=== PATIENT | female | born 1950 | race American Indian/Alaskan Native ===

== ENCOUNTER 2020-06-23 01:25 | Emergency (ER) | payer MEDICARE ==
--- NOTE | 2020-06-23 03:19 | XRay Report ---
CHEST 1 VIEW 06/23/2020 3:07 AM INDICATION / CLINICAL INFORMATION: Chest Pain. COMPARISON: None available. FINDINGS: SUPPORT DEVICES: None. HEART / MEDIASTINUM: No significant abnormality. LUNGS / PLEURA: No significant pulmonary or pleural abnormality. No pneumothorax. ADDITIONAL FINDINGS: No significant additional findings. IMPRESSION: 1. No acute findings. Signer Name: Gabriel Garcia MD Signed: 06/23/2020 3:15 AM Workstation Name: [id number]
--- NOTE | 2020-06-23 03:57 | Cat Scan Report ---
CT head/brain wo con INDICATION: Syncope, fall, loss of consciousness, headache. TECHNIQUE: Routine CT head without contrast. All CT scans at this location are performed using CT dose reduction for ALARA by means of automated exposure control. COMPARISON: None. FINDINGS: BRAIN / INTRACRANIAL CONTENTS: No acute hemorrhage, brain edema, mass effect, or hydrocephalus. Yara l lu-white differentiation. No chronic infarct. Age-commensurate ventricular and cisternal/sulcal p rominence. CALVARIUM/SKULL BASE/CRANIOCERVICAL JUNCTION: No evidence of fracture. ORBITS: No significant abnormality of visualized orbits. SINUSES / MASTOIDS: No significant abnormality of visualized sinuses and mastoid air cells. ADDITIONAL FINDINGS: None. IMPRESSION: 1. No acute post-traumatic intracranial abnormality. Signer Name: Gabriel Garcia MD Signed: 06/23/2020 3:52 AM Workstation Name: [id number]
--- NOTE | 2020-06-23 04:01 | Cat Scan Report ---
CT CERVICAL SPINE WITHOUT CONTRAST INDICATION: Neck pain after syncope and fall. TECHNIQUE: Axial CT images of the spine were obtained. Sagittal and coronal reformatted images were produced. Al l CT scans at this location are performed using CT dose reduction for ALARA by means of automated exp osure control. COMPARISON: None available. FINDINGS: ACUTE FRACTURE(S) OR SUBLUXATION: None. SPINAL DEGENERATIVE CHANGES: There is mild degenerative disc disease at C5-6 and C6-7 with disc heigh t loss and endplate osteophyte formation. There is no significant spinal canal stenosis or neural for aminal narrowing. PARASPINAL SOFT TISSUES: No soft tissue swelling or other acute abnormalities. ADDITIONAL FINDINGS: No significant additional findings. IMPRESSION: 1. No acute fracture or subluxation in the spine in neutral position. Signer Name: Gabriel Garcia MD Signed: 06/23/2020 3:57 AM Workstation Name: [id number]
[2020-06-23 05:07] LABS: Blood Urea Nitrogen 13 mg/dL (7-17); Calcium 9.8 mg/dL (8.4-10.2); Hemolysis Index 86
[2020-06-23 05:15] LABS: BUN/Creatinine Ratio 19
[2020-06-23 05:20] LABS: Basophils % (Auto) 0.5 % (0.0-1.8); Eosinophils % (Auto) 0.2 % (0.0-4.3); Hematocrit 43.9 % (30.3-42.9); Hemoglobin 14.8 gm/dl (10.1-14.3); Lymphocytes # (Auto) 1.3 K/mm3 (1.2-5.4); Lymphocytes % (Auto) 15.3 % (13.4-35.0); Mean Corpuscular HGB Conc 34 % (30-34); Mean Corpuscular Volume 91 fl (79-97); Monocytes # (Auto) 0.3 K/mm3 (0.0-0.8); Platelet Count 206 K/mm3 (140-440); Red Blood Count 4.83 M/mm3 (3.65-5.03); Red Cell Distribution Width 13.7 % (13.2-15.2)
[2020-06-23 05:35] LABS: INR 0.91 (0.87-1.13)
[2020-06-23 06:48] LABS: Bilirubin,Urine NEG (Negative); Blood,Urine MOD (Negative); Color,Urine Yellow (Yellow); Hyaline Casts,Urine 1 /LPF; Mucus,Urine 3+ /HPF; Urobilinogen,Urine < 2.0 mg/dL (<2.0)
[2020-06-23] MEDS ORDERED: ONDANSETRON 4 MG ODT TAB ONE (07:35)
--- NOTE | 2020-06-23 10:28 | Emergency Department Report ---
HPI - General Chief Complaint: Syncope Time Seen by Provider: 06/23/20 10:03 - HPI HPI: This is a 70-year-old -[place] female who presents to the emergency department via EMS from home after having an episode last night and when she passed out in the bathroom. The patient says that she just completed "#1 and #2" and was standing in the bathroom when she became dizzy and passed out. The patient says that she woke up on the floor in between the toilet and the wall. It made it difficult for her to get up initially. She was able to wedge herself out of that position and she crawled over to her grandsons bedroom and knocked on the door. They then helped her get up into her bed and they called for EMS. Patient says that she felt lightheaded and nauseated after her return of consciousness. She thinks that she was unconscious for about 1 to 2 minutes. This initially occurred around midnight last night. At the time of my examination the patient says that she feels "much better" and is back at her baseline. She has a mild headache but otherwise denies any vision change, slurred speech, numbness or paresthesias, chest pain, shortness of breath, fever, or any neurologic deficits. She has a past medical history of hypertension. She follows with [facility] for primary care and goes to [facility] cardiology annually for prevention. No recent travel or sick contacts at home. ED Past Medical Hx - Past Medical History Previous Medical History?: Yes Hx Hypertension: Yes - Surgical History Past Surgical History?: Yes Additional Surgical History: Hysterectomy, breast biopsy - Social History Smoking Status: Never Smoker Substance Use Type: None ED Review of Systems ROS: Stated complaint: SYNCOPE Other details as noted in HPI Comment: All other systems reviewed and negative Constitutional: denies: chills, fever Eyes: denies: eye pain, vision change ENT: denies: ear pain, throat pain Respiratory: denies: cough, shortness of breath Cardiovascular: syncope. denies: chest pain Gastrointestinal: nausea. denies: abdominal pain, vomiting Genitourinary: denies: dysuria, discharge Musculoskeletal: denies: back pain, arthralgia Skin: denies: rash, lesions Neurological: headache, other (lightheaded) Physical Exam - Physical Exam Vital Signs: Vital Signs 1106/23/20 06/23/20 02:11 07:33 09:37 Temperature 97.7 F 97.8 F 98.1 F Pulse Rate 55 L 62 56 L Respiratory 17 16 14 Rate Blood Pressure 143/74 Blood Pressure 127/75 133/71 [Right] O2 Sat by Pulse 99 100 99 Oximetry 06/23/20 10:00 Temperature Pulse Rate 49 L Respiratory 14 Rate Blood Pressure 136/67 Blood Pressure [Right] O2 Sat by Pulse 100 Oximetry Physical Exam: GENERAL: The patient is well-developed well-nourished. HENT: Normocephalic. Atraumatic. Patient has moist mucous membranes. EYES: Extraocular motions are intact. No nystagmus. NECK: Supple. Trachea is midline. CHEST/LUNGS: Clear to auscultation. There is no respiratory distress noted. HEART/CARDIOVASCULAR: Regular. There is no tachycardia. There is no murmur. ABDOMEN: Abdomen is soft, nontender. Patient has normal bowel sounds. There is no abdominal distention. SKIN: Skin is warm and dry. NEURO: The patient is awake, alert, and oriented. The patient is cooperative. The patient has no focal neurologic deficits. Normal speech. Cranial nerves II through XII grossly intact. No pronator drift. No dysmetria. No facial asymmetry. MUSCULOSKELETAL: There is no tenderness or deformity. There is no limitation range of motion. ED Course Vital Signs 06/23/20 06/23/20 06/23/20 02:11 07:33 09:37 Temperature 97.7 F 97.8 F 98.1 F Pulse Rate 55 L 62 56 L Respiratory 17 16 14 Rate Blood Pressure 143/74 Blood Pressure 127/75 133/71 [Right] O2 Sat by Pulse 99 100 99 Oximetry 06/23/20 10:00 Temperature Pulse Rate 49 L Respiratory 14 Rate Blood Pressure 136/67 Blood Pressure [Right] O2 Sat by Pulse 100 Oximetry - Reevaluation(s) Reevaluation #1: 06/23/20 10:59 Lab Results 06/23/20 06/23/20 06/23/20 Range/Units 03:56 03:56 03:56 WBC 8.8 (4.5-11.0) K/mm3 RBC 4.83 (3.65-5.03) M/mm3 Hgb 14.8 H (10.1-14.3) gm/dl Hct 43.9 H (30.3-42.9) % MCV 91 (79-97) fl MCH 31 (28-32) pg MCHC 34 (30-34) % RDW 13.7 (13.2-15.2) % Plt Count 206 (140-440) K/mm3 Lymph % (Auto) 15.3 (13.4-35.0) % [place] % (Auto) 3.0 (0.0-7.3) % Eos % (Auto) 0.2 (0.0-4.3) % Baso % (Auto) 0.5 (0.0-1.8) % Lymph # (Auto) 1.3 (1.2-5.4) K/mm3 [place] # (Auto) 0.3 (0.0-0.8) K/mm3 Eos # (Auto) 0.0 (0.0-0.4) K/mm3 Baso # (Auto) 0.0 (0.0-0.1) K/mm3 Seg Neutrophils % 81.0 H (40.0-70.0) % Seg Neutrophils # 7.1 (1.8-7.7) K/mm3 PT 12.4 (12.2-14.9) Sec. INR 0.91 (0.87-1.13) Sodium 143 (137-145) mmol/L Potassium 4.4 (3.6-5.0) mmol/L Chloride 105.1 (98-107) mmol/L Carbon Dioxide 24 (22-30) mmol/L Anion Gap 18 mmol/L BUN 13 (7-17) mg/dL Creatinine 0.7 (0.6-1.2) mg/dL Estimated GFR > 60 ml/min BUN/Creatinine Ratio 19 % Glucose 136 H (65-100) mg/dL Calcium 9.8 (8.4-10.2) mg/dL Troponin T < 0.010 (0.00-0.029) ng/mL Urine Color (Yellow) Urine Turbidity (Clear) Urine pH (5.0-7.0) Ur Specific [place] (1.003-1.030) Urine Protein (Negative) mg/dL Urine Glucose (UA) (Negative) mg/dL Urine Ketones (Negative) mg/dL Urine Blood (Negative) Urine Nitrite (Negative) Urine Bilirubin (Negative) Urine Urobilinogen (<2.0) mg/dL Ur Leukocyte Esterase (Negative) Urine WBC (Auto) (0.0-6.0) /HPF Urine RBC (Auto) (0.0-6.0) /HPF U Epithel Cells (Auto) (0-13.0) /HPF Hyaline Casts /LPF Urine Mucus /HPF 06/23/20 06/23/20 Range/Units 06:01 08:16 WBC (4.5-11.0) K/mm3 RBC (3.65-5.03) M/mm3 Hgb (10.1-14.3) gm/dl Hct (30.3-42.9) % MCV (79-97) fl MCH (28-32) pg MCHC (30-34) % RDW (13.2-15.2) % Plt Count (140-440) K/mm3 Lymph % (Auto) (13.4-35.0) % [place] % (Auto) (0.0-7.3) % Eos % (Auto) (0.0-4.3) % Baso % (Auto) (0.0-1.8) % Lymph # (Auto) (1.2-5.4) K/mm3 [place] # (Auto) (0.0-0.8) K/mm3 Eos # (Auto) (0.0-0.4) K/mm3 Baso # (Auto) (0.0-0.1) K/mm3 Seg Neutrophils % (40.0-70.0) % Seg Neutrophils # (1.8-7.7) K/mm3 PT (12.2-14.9) Sec. INR (0.87-1.13) Sodium (137-145) mmol/L Potassium (3.6-5.0) mmol/L Chloride (98-107) mmol/L Carbon Dioxide (22-30) mmol/L Anion Gap mmol/L BUN (7-17) mg/dL Creatinine (0.6-1.2) mg/dL Estimated GFR ml/min BUN/Creatinine Ratio % Glucose (65-100) mg/dL Calcium (8.4-10.2) mg/dL Troponin T < 0.010 (0.00-0.029) ng/mL Urine Color Yellow (Yellow) Urine Turbidity Clear (Clear) Urine pH 5.0 (5.0-7.0) Ur Specific [place] 1.018 (1.003-1.030) Urine Protein 30 mg/dl (Negative) mg/dL Urine Glucose (UA) Neg (Negative) mg/dL Urine Ketones Neg (Negative) mg/dL Urine Blood Mod (Negative) Urine Nitrite Neg (Negative) Urine Bilirubin Neg (Negative) Urine Urobilinogen < 2.0 (<2.0) mg/dL Ur Leukocyte Esterase Neg (Negative) Urine WBC (Auto) 3.0 (0.0-6.0) /HPF Urine RBC (Auto) 2.0 (0.0-6.0) /HPF U Epithel Cells (Auto) < 1.0 (0-13.0) /HPF Hyaline Casts 1 /LPF Urine Mucus 3+ /HPF Reevaluation #2: 06/23/20 10:59 Vital Signs 06/23/20 06/23/20 06/23/20 02:11 07:33 09:37 Temperature 97.7 F 97.8 F 98.1 F Pulse Rate 55 L 62 56 L Respiratory 17 16 14 Rate Blood Pressure 143/74 Blood Pressure 127/75 133/71 [Right] O2 Sat by Pulse 99 100 99 Oximetry 06/23/20 06/23/20 10:00 10:45 Temperature Pulse Rate 49 L 49 L Respiratory 14 11 L Rate Blood Pressure 136/67 141/72 Blood Pressure [Right] O2 Sat by Pulse 100 100 Oximetry ED Medical Decision Making - Lab Data Result diagrams: 06/23/20 03:56 06/23/20 03:56 - EKG Data -: EKG Interpreted by Me EKG shows normal: sinus rhythm, axis, intervals (Prolonged OK interval), QRS complexes, ST-T waves Rate: bradycardia (55 bpm) - EKG Data When compared to previous EKG there are: previous EKG unavailable Interpretation: other (Sinus bradycardia at 55 bpm, prolonged OK interval, no ST elevation SD.) - Radiology Data Radiology results: report reviewed, image reviewed interpreted by me: Chest x-ray does not show any acute process. There are no pleural effusions, obvious pneumonia and there is no pneumothorax. No significant cardiomegaly. CT head/brain wo con INDICATION: Syncope, fall, loss of consciousness, headache. TECHNIQUE: Routine CT head without contrast. All CT scans at this location are performed using CT dose reduction for ALARA by means of automated exposure co ntrol. COMPARISON: None. FINDINGS: BRAIN / INTRACRANIAL CONTENTS: No acute hemorrhage, brain edema, mass effect, or hydrocephalus. Normal lu-white differentiation. No chronic infarct. Age-commensurate ventricular and cisterna l/sulcal prominence. CALVARIUM/SKULL BASE/CRANIOCERVICAL JUNCTION: No evidence of fracture. ORBITS: No significant abnormality of visualized orbits. SINUSES / MASTOIDS: No significant abnormality of visualized sinuses and mastoid air cells. ADDITIONAL FINDINGS: None. IMPRESSION: 1. No acute post-traumatic intracranial abnormality. CT CERVICAL SPINE WITHOUT CONTRAST INDICATION: Neck pain after syncope and fall. TECHNIQUE: Axial CT images of the spine were obtained. Sagittal and coronal reformatted images were produced. All CT scans at this location are performed using CT dose reduction for ALARA by means of automated exposure control. COMPARISON: None available. FINDINGS: ACUTE FRACTURE(S) OR SUBLUXATION: None. SPINAL DEGENERATIVE CHANGES: There is mild degenerative disc disease at C5-6 and C6-7 with disc height loss and endplate osteophyte formation. There is no significant spinal canal stenosis or neural foraminal narrowing. PARASPINAL SOFT TISSUES: No soft tissue swelling or other acute abnormalities. ADDITIONAL FINDINGS: No significant additional findings. IMPRESSION: 1. No acute fracture or subluxation in the spine in neutral position. - Medical Decision Making This patient presents to the emergency department after having a syncopal episode last night around midnight. The majority of the patient's work-up was completed prior to my shift starting this morning. She had a CT scan of the head without contrast that did not show any bleed, shift, mass, ischemia, skull fracture, or any other acute process. CT of the cervical spine without contrast did not show any fracture, subluxation, or any acute process. EKG shows a first-degree AV block with a slightly prolonged OK interval and a heart rate of about 55 bpm, but otherwise there is no morphology consistent with ST elevation SD. Patient's labs have been unremarkable including CBC, metabolic panel, negative troponins x2. Other than some transient bradycardia, the patient's vital signs have been reassuring throughout her ED course. On examination there is no focal, motor or sensory deficits and her cranial nerves are intact. The patient has been in the emergency department for greater than 9 hours without any return of any syncope, seizure-like activity, development of chest pain or shortness of breath, or any acute distress. Patient says that she feels back to her baseline status. She has been seen ambulatory in the emergency department and both appears and feels stable. She has good outpatient follow-up with both primary care and cardiology. She has been instructed to follow-up with her PCP and bin operator, and to return to the closest emergency department with any further episodes of passing out, worsening of her symptoms, or with any acute distress. Critical Care Time: No Critical care attestation.: If time is entered above; I have spent that time in minutes in the direct care of this critically ill patient, excluding procedure time. ED Disposition Clinical Impression: First degree AV block Syncope Qualifiers: Syncope type: unspecified Qualified Code(s): R55 - Syncope and collapse Disposition: DC- TO HOME OR SELFCARE Is pt being admited?: No Condition: Stable Instructions: First-Degree Atrioventricular Block, Syncope, Syncope (ED) Additional Instructions: Please follow-up with your primary care physician and bin operator in the next few days. Return to the emergency department with any worsening of your symptoms, new or concerning symptoms not addressed during this current emergency department visit, or with any acute distress. [facility] - 2-[address] [facility] [Provider Group] - 2-3 Days Time of Disposition: 10:29 - Assessment Assessment Interval: Baseline - Level of Consciousness 1a. Level of Consciousness: alert/keenly responsive - LOC Questions 1b. LOC Questions: answers both correctly - LOC Command 1c. LOC Commands: performs tasks correctly - Best Gaze 2. Best Gaze: normal - Visual 3. Visual: no visual loss - Facial Palsy 4. Facial Palsy: normal symmetrical movement - Motor Arm 5a. Motor Arm Left: no drift 5b. Motor Arm Right: no drift - Motor Leg 6a. Motor Leg Left: no drift 6b. Motor Leg Right: no drift - Limb Ataxia 7. Limb Ataxia: absent - Sensory 8. Sensory: normal - Best Language 9. Best Language: no aphasia - Dysarthria 10. Dysarthria: normal - Extinction and Inattention 11. Extinction/Inattention: no abnormality - Scoring Total Score: 0 Stroke Severity: No Stroke Symptoms
[2020-06-23 10:56] VITALS: BP 141/72
[2020-06-23] MEDS ORDERED: ONDANSETRON 4 MG ODT TAB PO ONE (11:23)
== END 2020-06-23 11:19 | disposition home or self-care (01) ==
LOC: ED 01:25
DX: R55 Syncope and collapse (principal); I10 Essential (primary) hypertension; Z90.710 Acquired absence of both cervix and uterus; Z98.890 Other specified postprocedural states
CPT/HCPCS: 36415; 70450; 71045; 72125; 80048; 81001; 84484; 85025; 85610; 93005; Q0162

== ENCOUNTER 2020-08-22 18:00 | Inpatient (IN) | payer MEDICARE ==
--- NOTE | 2020-08-22 18:14 | Event Note ---
ED Screening Note Date of service: 08/22/20 Time: 18:13 ED Screening Note: 70-year-old -[place] female presents to the emergency room for 3-day history of dizziness. Patient states she recently had her blood pressure medicine adjusted 3 days ago. Patient episode of vomiting and the main waiting room that was projectile. This initial assessment/diagnostic orders/clinical plan/treatment(s) is/are subject to change based on patients health status, clinical progression and re-assessment by fellow clinical providers in the ED. Further treatment and workup at subsequent clinical providers discretion. Patient/guardian urged not to elope from the ED as their condition may be serious if not clinically assessed and managed. Initial orders include:
[2020-08-22 18:39] LABS: Basophils % (Auto) 0.5 % (0.0-1.8); Eosinophils % (Auto) 0.4 % (0.0-4.3); Hematocrit 45.6 % (30.3-42.9); Hemoglobin 15.5 gm/dl (10.1-14.3); Lymphocytes # (Auto) 3.3 K/mm3 (1.2-5.4); Lymphocytes % (Auto) 37.1 % (13.4-35.0); Mean Corpuscular HGB Conc 34 % (30-34); Mean Corpuscular Volume 89 fl (79-97); Monocytes # (Auto) 0.6 K/mm3 (0.0-0.8); Monocytes % (Auto) 7.1 % (0.0-7.3); Platelet Count 233 K/mm3 (140-440); Red Blood Count 5.15 M/mm3 (3.65-5.03); Red Cell Distribution Width 12.8 % (13.2-15.2)
[2020-08-22 18:52] LABS: Alanine Aminotransferase 24 units/L (7-56); Albumin 4.6 g/dL (3.9-5); Blood Urea Nitrogen 8 mg/dL (7-17); Calcium 9.6 mg/dL (8.4-10.2); Hemolysis Index 30
[2020-08-22 19:05] LABS: BUN/Creatinine Ratio 11
[2020-08-22] MEDS ORDERED: METOCLOPRAMIDE 10 MG/2 ML INJ IV ONE (19:41)
--- NOTE | 2020-08-22 19:42 | Emergency Department Report ---
ED General Adult HPI - General Chief complaint: Nausea/Vomiting/Diarrhea Stated complaint: MIGRAINE/DIZZINESS/NAUSEA PUI?: No Time Seen by Provider: 08/22/20 19:31 Source: patient, RN notes reviewed Mode of arrival: Wheelchair Limitations: No Limitations - History of Present Illness Initial comments: The patient was evaluated in the emergency department for symptoms described in the history of present illness. He/she was evaluated in the context of the global COVID-19 pandemic, which necessitated consideration that the patient might be at risk for infection with the virus that causes COVID-19. Institutional protocols and algorithms that pertain to the evaluation of patients at risk for COVID-19 are in a state of rapid change based on information released by regulatory bodies including the CDC and federal and state organizations. These policies and algorithms were followed during the patient's care in the emergency department. Please note that these policies, procedures and recommendations changed on a rapid basis. Primary care: [facility] The patient is a 70-year-old female. The patient reports a history of hypertension, migraine headaches, and distant history of hysterectomy. She presents to the ER with a complaint of "migraine headache,", nausea, vomiting and "dizziness." Patient reports that her outpatient primary care doctor recently changed her prescription antihypertensive therapy, lisinopril, to lisinopril HCTZ. She reports her symptoms are closely correlated with this change. She describes a headache which is frontal, not sudden or thunderclap in nature, not maximal in intensity, not the worst headache of her life, without associated loss of vision, extremity weakness/numbness, or neck pain/neck stiffness. Headache is similar to prior headaches. There is no loss of vision, no sore throat, no chest pain, no chest tightness, positive heart racing, no new or different shortness of breath, positive dry cough, no abdominal pain, positive nausea, no diarrhea, no dysuria, no muscle aches. Symptoms intermittent over the past few days, do not radiate anywhere, do not really have exacerbating or relieving factors that she is aware of. -: Gradual, days(s) Location: head Radiation: non-radiation Quality: aching Consistency: constant Improves with: none Worsens with: none - Related Data Allergies Allergy/AdvReac Type Severity Reaction Status Date / Time No Known Allergies Allergy Unverified 06/23/20 10:22 ED Review of Systems ROS: Stated complaint: MIGRAINE/DIZZINESS/NAUSEA Other details as noted in HPI Constitutional: denies: fever Eyes: denies: eye discharge, vision change ENT: denies: congestion Respiratory: cough. denies: wheezing Cardiovascular: denies: chest pain Gastrointestinal: nausea. denies: hematemesis, melena, hematochezia Genitourinary: denies: dysuria Musculoskeletal: denies: myalgia Neurological: headache, weakness ED Past Medical Hx - Past Medical History Previous Medical History?: Yes Hx Hypertension: Yes Hx of Cancer: Yes (left) - Surgical History Past Surgical History?: Yes Hx Breast Surgery: Yes (left breast biopsy) Additional Surgical History: Hysterectomy, breast biopsy - Social History Smoking Status: Never Smoker Substance Use Type: Prescribed ED Physical Exam - General Limitations: No Limitations General appearance: alert, in no apparent distress - Head Head exam: Present: atraumatic, normocephalic - Eye Eye exam: Present: normal appearance, PERRL, EOMI, other (Visual acuity intact to finger counting, color perception, reading at a close distance). Absent: nystagmus - ENT ENT exam: Present: normal exam, normal orophraynx, mucous membranes moist, normal external ear exam - Neck Neck exam: Present: normal inspection, full ROM. Absent: tenderness, meningismus - Respiratory Respiratory exam: Present: normal lung sounds bilaterally. Absent: respiratory distress, wheezes, rales, rhonchi, stridor, decreased breath sounds - Cardiovascular Cardiovascular Exam: Present: regular rate, normal rhythm, normal heart sounds. Absent: bradycardia, tachycardia, irregular rhythm, systolic murmur, diastolic murmur, rubs, gallop - GI/Abdominal GI/Abdominal exam: Present: soft, normal bowel sounds. Absent: distended, tenderness, guarding, rebound, rigid, pulsatile mass - Extremities Exam Extremities exam: Present: normal inspection, full ROM, pedal edema (1-2+ edema in the bilateral lower extremities), other (2+ pulses noted in the bilateral upper and lower extremities. There is no palpable cord. negative Homans sign. Muscular compartments are soft. The pelvis is stable.). Absent: calf tenderness - Back Exam Back exam: Present: normal inspection, full ROM. Absent: tenderness, CVA tenderness (R), CVA tenderness (L), paraspinal tenderness, vertebral tenderness - Neurological Exam Neurological exam: Present: alert, other (No facial droop. Tongue midline. Extraocular movements intact bilaterally. Facial sensation intact to light touch in V1, V2, V3 distribution bilaterally. 5 and a 5 strength in 4 extremities. Sensation intact to light touch in 4 extremities.). Absent: motor sensory deficit - Psychiatric Psychiatric exam: Present: normal affect, normal mood - Skin Skin exam: Present: warm, dry, intact, normal color. Absent: rash ED Course Vital Signs 08/22/20 08/22/20 08/22/20 18:11 19:46 20:00 Temperature 98.1 F Pulse Rate 70 60 58 L Respiratory 20 16 16 Rate Blood Pressure 140/80 156/88 156/88 Blood Pressure [Right] O2 Sat by Pulse 98 100 100 Oximetry 08/22/20 08/22/20 08/22/20 20:24 20:30 20:45 Temperature Pulse Rate 59 L 60 56 L Respiratory 14 16 12 Rate Blood Pressure 156/88 137/78 124/66 Blood Pressure 156/88 [Right] O2 Sat by Pulse 100 100 99 Oximetry 08/22/20 21:00 Temperature Pulse Rate 55 L Respiratory 14 Rate Blood Pressure 119/67 Blood Pressure [Right] O2 Sat by Pulse 98 Oximetry - Reevaluation(s) Reevaluation #1: 08/22/20 21:26 CT scan of the brain is negative for acute findings. The patient indicates she feels improved. - Consultations Consultation #1: 08/22/20 21:02 Discussed patient's history, physical, pertinent laboratory studies with nephrology on-call, Dr. Thornton. Recommends patient reinitiate lisinopril, hold HCTZ/diuretics. Recommend supportive care with fluid restriction. His group will follow in consultation ED Medical Decision Making - Lab Data Result diagrams: 08/22/20 18:14 08/22/20 18:14 Vital Signs 08/22/20 08/22/20 18:11 20:24 Temperature 98.1 F Pulse Rate 70 59 L Respiratory 20 14 Rate Blood Pressure 140/80 Blood Pressure 156/88 [Right] O2 Sat by Pulse 98 100 Oximetry Lab Results 08/22/20 08/22/20 08/22/20 Range/Units 18:14 18:14 18:14 WBC 8.9 (4.5-11.0) K/mm3 RBC 5.15 H (3.65-5.03) M/mm3 Hgb 15.5 H (10.1-14.3) gm/dl Hct 45.6 H (30.3-42.9) % MCV 89 (79-97) fl MCH 30 (28-32) pg MCHC 34 (30-34) % RDW 12.8 L (13.2-15.2) % Plt Count 233 (140-440) K/mm3 Lymph % (Auto) 37.1 H (13.4-35.0) % [place] % (Auto) 7.1 (0.0-7.3) % Eos % (Auto) 0.4 (0.0-4.3) % Baso % (Auto) 0.5 (0.0-1.8) % Lymph # (Auto) 3.3 (1.2-5.4) K/mm3 [place] # (Auto) 0.6 (0.0-0.8) K/mm3 Eos # (Auto) 0.0 (0.0-0.4) K/mm3 Baso # (Auto) 0.0 (0.0-0.1) K/mm3 Seg Neutrophils % 54.9 (40.0-70.0) % Seg Neutrophils # 4.9 (1.8-7.7) K/mm3 Sodium 119 L* (137-145) mmol/L Potassium 3.9 (3.6-5.0) mmol/L Chloride 82.2 L (98-107) mmol/L Carbon Dioxide 23 (22-30) mmol/L Anion Gap 17 mmol/L BUN 8 (7-17) mg/dL Creatinine 0.7 (0.6-1.2) mg/dL Estimated GFR > 60 ml/min BUN/Creatinine Ratio 11 % Glucose 143 H (65-100) mg/dL Uric Acid (3.5-7.6) mg/dL Calcium 9.6 (8.4-10.2) mg/dL Magnesium (1.7-2.3) mg/dL Total Bilirubin 0.60 (0.1-1.2) mg/dL AST 28 (5-40) units/L ALT 24 (7-56) units/L Alkaline Phosphatase 79 (35-129) units/L Total Creatine Kinase (30-135) units/L Troponin T (0.00-0.029) ng/mL Total Protein 7.6 (6.3-8.2) g/dL Albumin 4.6 (3.9-5) g/dL Albumin/Globulin Ratio 1.5 % Lipase 16 (13-60) units/L 08/22/20 08/22/20 Range/Units 18:14 18:14 WBC (4.5-11.0) K/mm3 RBC (3.65-5.03) M/mm3 Hgb (10.1-14.3) gm/dl Hct (30.3-42.9) % MCV (79-97) fl MCH (28-32) pg MCHC (30-34) % RDW (13.2-15.2) % Plt Count (140-440) K/mm3 Lymph % (Auto) (13.4-35.0) % [place] % (Auto) (0.0-7.3) % Eos % (Auto) (0.0-4.3) % Baso % (Auto) (0.0-1.8) % Lymph # (Auto) (1.2-5.4) K/mm3 [place] # (Auto) (0.0-0.8) K/mm3 Eos # (Auto) (0.0-0.4) K/mm3 Baso # (Auto) (0.0-0.1) K/mm3 Seg Neutrophils % (40.0-70.0) % Seg Neutrophils # (1.8-7.7) K/mm3 Sodium (137-145) mmol/L Potassium (3.6-5.0) mmol/L Chloride (98-107) mmol/L Carbon Dioxide (22-30) mmol/L Anion Gap mmol/L BUN (7-17) mg/dL Creatinine (0.6-1.2) mg/dL Estimated GFR ml/min BUN/Creatinine Ratio % Glucose (65-100) mg/dL Uric Acid 3.1 L (3.5-7.6) mg/dL Calcium (8.4-10.2) mg/dL Magnesium 1.90 (1.7-2.3) mg/dL Total Bilirubin (0.1-1.2) mg/dL AST (5-40) units/L ALT (7-56) units/L Alkaline Phosphatase (35-129) units/L Total Creatine Kinase 251 H (30-135) units/L Troponin T < 0.010 (0.00-0.029) ng/mL Total Protein (6.3-8.2) g/dL Albumin (3.9-5) g/dL Albumin/Globulin Ratio % Lipase (13-60) units/L - EKG Data -: EKG Interpreted by Me EKG shows normal: sinus rhythm Rate: normal - EKG Data 08/22/20 20:45 Sinus rhythm, bradycardia, first-degree AV block, WI interval 233 ms, low voltag e, and motion artifact. Abnormal EKG. Not a STEMI. Essentially unchanged from prior EKG from June 2020 - Radiology Data Radiology results: pending, report reviewed, image reviewed interpreted by me: Print Report Referring Physician: DESIREE MANE Patient Name: HEMALATHA MARRERO Date of : 1950 Sex: Female Report Date: 2020-08-22 Report Status: [place] [id number] XRay Report Signed Patient: HEMALATHA MARRERO MR#: [id number] 14 : 1950 Acct:[id number] Age/Sex: 70 / F ADM Date: 08/22/20 Loc: ED Attending Dr: Ordering Physician: DESIREE MANE MD Date of Service: 08/22/20 Procedure(s): XR chest 1V ap Accession Number(s): [id number] cc: DESIREE MANE MD Fluoro Time In Minutes: CHEST 1 VIEW INDICATION: n/v weak, hyponatremia. COMPARISON: 06/23/2020 FINDINGS: Support devices: None. Heart: Normal. Lungs/Pleura: No acute pulmonary or pleural findings. IMPRESSION: 1. No acute findings. Signer Name: Johnson Yanez MD Signed: 08/22/2020 8:02 PM Workstation Name: [id number] Transcribed By: CAITLIN Dictated By: Johnson Yanez MD Electronically Authenticated By: Johnson Yanez MD Signed Date/Time: 08/22/202001 DD/ 00 TD/TT: X-ray of the chest is negative for acute findings. Noncontrast CT scan of the brain: - Medical Decision Making Differential diagnosis, including but not limited to: Medication side effect, acute hyponatremia, hypovolemic hyponatremia, euvolemic hyponatremia Assessment and plan: 70-year-old female, with a GCS of 15, presenting with a complaint of nausea, vomiting, dizziness, headache. The headache is not sudden or thunderclap in nature, not maximal in intensity at the onset. The patient has an NIH score of 0. She has no abdominal pain. She has lower extremity edema, clear x-ray of the chest, and in the context of recent onset HCTZ initiation, I suspect diuretic associated hyponatremia. She will be given Reglan for her headache. We have recommended admission to the medical service for correction of hyponatremia. Patient is amenable to this plan of care. I have discussed the patient's history, physical, pertinent laboratory studies and imaging studies with the hospital physician, Dr. Brock Galicia, Who has accepted the patient to the medical service. He requested nephrology consultation. We will discuss with nephrology on-call. Additional hyponatremia labs will be sent, I will defer to the inpatient team to follow this up. First-degree AV block and bradycardia asymptomatic. Outpatient follow-up for this. Critical care attestation.: If time is entered above; I have spent that time in minutes in the direct care of this critically ill patient, excluding procedure time. ED Disposition Clinical Impression: Acute hyponatremia Acute headache Qualifiers: Headache type: unspecified Intractability: not intractable Qualified Code(s): R51.9 - Headache, unspecified Disposition: 09 OP ADMIT IP TO THIS HOSP Is pt being admited?: Yes Does the pt Need Aspirin: No Condition: Good
--- NOTE | 2020-08-22 20:06 | XRay Report ---
CHEST 1 VIEW INDICATION: n/v weak, hyponatremia. COMPARISON: 06/23/2020 FINDINGS: Support devices: None. Heart: Normal. Lungs/Pleura: No acute pulmonary or pleural findings. IMPRESSION: 1. No acute findings. Signer Name: Johnson Yanez MD Signed: 08/22/2020 8:02 PM Workstation Name: [id number]
[2020-08-22 20:07] LABS: Uric Acid 3.1 mg/dL (3.5-7.6)
--- NOTE | 2020-08-22 20:56 | Cat Scan Report ---
CT HEAD WITHOUT CONTRAST INDICATION / CLINICAL INFORMATION: acute headache. TECHNIQUE: All CT scans at this location are performed using CT dose reduction for ALARA by means of automated e xposure control. COMPARISON: Head CT 06/23/2020 FINDINGS: HEMORRHAGE: No evidence of intracranial hemorrhage or extra-axial fluid collection. EXTRA-AXIAL SPACES: Cortical sulci, sylvian fissures and basilar cisterns have an unremarkable appear ance. VENTRICULAR SYSTEM: The third and lateral ventricles are of normal size and configuration. There is l ittle in the way of parenchymal volume loss in this 70-year-old individual. CEREBRAL PARENCHYMA: Physiological calcifications are present in the basal ganglia bilaterally. No si gnificant areas of abnormal brain parenchymal attenuation are identified. There is no indication of r ecent infarction. MIDLINE SHIFT OR HERNIATION: There is no mass effect. CEREBELLUM / BRAINSTEM: Brainstem and cerebellum have an unremarkable appearance. MIDLINE STRUCTURES:No abnormalities of the pituitary gland or pineal region are identified. INTRACRANIAL VESSELS: Extensively calcified atherosclerotic plaque is observed along the course of th e cavernous segments of both internal carotid arteries as well as at the distal vertebral arteries. ORBITS: visualized portions of the orbits have an unremarkable appearance. SOFT TISSUES of HEAD: No significant abnormality. CALVARIUM: Evaluation of bone windows reveals no abnormalities. PARANASAL SINUSES / MASTOID AIR CELLS: Visualized portions of the paranasal sinuses are free from inf lammatory mucosal disease. Mastoid air cells are normally pneumatized. IMPRESSION: 1. Extensive calcified plaque along the course the major intracranial vessels. 2. Otherwise normal head CT without contrast. No interval change. Signer Name: Miles Don MD Signed: 08/22/2020 8:51 PM Workstation Name: [id number]
[2020-08-22] MEDS ORDERED: ONDANSETRON 4 MG/2 ML INJ IV PRN (21:14)
--- NOTE | 2020-08-22 21:21 | History and Physical Report ---
History of Present Illness Date of examination: 08/22/20 Chief complaint: Nausea vomiting diarrhea dizziness History of present illness: 70-year-old female with history of hypertension, migraine headaches, and distant history of hysterectomy was brought to the emergency room because of "migraine headache,", nausea, vomiting and "dizziness for the last 3 days" Patient reports primary care doctor recently changed her prescription antihypertensive therapy, lisinopril, to lisinopril HCTZ. She reports her symptoms are closely correlated with this change. She describes a headache which is frontal, not sudden or thunderclap in nature, not maximal in intensity, not the worst headache of her life, without associated loss of vision, extremity weakness/numbness, or neck pain/neck stiffness. Headache is similar to prior headaches. In the emergency room patient is found to have sodium of 119. Initial CT scan of the head shows no acute intracranial abnormality Past History Past Medical History: hypertension Medications and Allergies Allergies Allergy/AdvReac Type Severity Reaction Status Date / Time No Known Allergies Allergy Unverified 06/23/20 10:22 Active Meds: Active Medications Acetaminophen (Acetaminophen 325 Mg Tab) 650 mg PO Q4H PRN PRN Reason: Pain MILD(1-3)/Fever >100.5/SAHU Sodium Chloride (Nacl 0.9% 1000 Ml) 1,000 mls @ 75 mls/hr IV DIRECT REN Ondansetron HCl (Ondansetron 4 Mg/2 Ml Inj) 4 mg IV Q8H PRN PRN Reason: Nausea And Vomiting Sodium Chloride (Sodium Chloride 0.9% 10 Ml Flush Syringe) 10 ml IV BID REN Sodium Chloride (Sodium Chloride 0.9% 10 Ml Flush Syringe) 10 ml IV PRN PRN PRN Reason: LINE FLUSH Review of Systems Constitutional: fatigue, malaise Gastrointestinal: nausea, vomiting, diarrhea Exam - Constitutional Vitals: Temp Pulse Resp BP Pulse Ox 98.1 F 55 L 14 119/67 98 08/22/20 18:11 08/22/20 21:00 08/22/20 21:00 08/22/20 21:00 08/22/20 21:00 General appearance: Present: no acute distress - EENT Eyes: Present: PERRL ENT: hearing intact, clear oral mucosa - Neck Neck: Present: supple, normal ROM - Respiratory Respiratory effort: normal Respiratory: bilateral: CTA - Cardiovascular Heart Sounds: Present: S1 & S2. Absent: rub, click - Extremities Extremities: pulses symmetrical, No edema Peripheral Pulses: within normal limits - Abdominal General gastrointestinal: Present: soft, non-tender, non-distended, normal bowel sounds Female genitourinary: Present: normal - Integumentary Integumentary: Present: clear, warm, dry - Musculoskeletal Musculoskeletal: gait normal, strength equal bilaterally - Psychiatric Psychiatric: appropriate mood/affect, intact judgment & insight - Neurologic Neurologic: CNII-XII intact, moves all extremities HEART Score - HEART Score Troponin: Troponin T < 0.010 ng/mL (0.00-0.029) 08/22/20 18:14 Results - Labs CBC & Chem 7: 08/22/20 18:14 08/22/20 18:14 Labs: Laboratory Last Values WBC 8.9 K/mm3 (4.5-11.0) 08/22/20 18:14 RBC 5.15 M/mm3 (3.65-5.03) H 08/22/20 18:14 Hgb 15.5 gm/dl (10.1-14.3) H 08/22/20 18:14 Hct 45.6 % (30.3-42.9) H 08/22/20 18:14 MCV 89 fl (79-97) 08/22/20 18:14 MCH 30 pg (28-32) 08/22/20 18:14 MCHC 34 % (30-34) 08/22/20 18:14 RDW 12.8 % (13.2-15.2) L 08/22/20 18:14 Plt Count 233 K/mm3 (140-440) 08/22/20 18:14 Lymph % (Auto) 37.1 % (13.4-35.0) H 08/22/20 18:14 [place] % (Auto) 7.1 % (0.0-7.3) 08/22/20 18:14 Eos % (Auto) 0.4 % (0.0-4.3) 08/22/20 18:14 Baso % (Auto) 0.5 % (0.0-1.8) 08/22/20 18:14 Lymph # (Auto) 3.3 K/mm3 (1.2-5.4) 08/22/20 18:14 [place] # (Auto) 0.6 K/mm3 (0.0-0.8) 08/22/20 18:14 Eos # (Auto) 0.0 K/mm3 (0.0-0.4) 08/22/20 18:14 Baso # (Auto) 0.0 K/mm3 (0.0-0.1) 08/22/20 18:14 Seg Neutrophils % 54.9 % (40.0-70.0) 08/22/20 18:14 Seg Neutrophils # 4.9 K/mm3 (1.8-7.7) 08/22/20 18:14 Sodium 119 mmol/L (137-145) L* 08/22/20 18:14 Potassium 3.9 mmol/L (3.6-5.0) 08/22/20 18:14 Chloride 82.2 mmol/L (98-107) L 08/22/20 18:14 Carbon Dioxide 23 mmol/L (22-30) 08/22/20 18:14 Anion Gap 17 mmol/L 08/22/20 18:14 BUN 8 mg/dL (7-17) 08/22/20 18:14 Creatinine 0.7 mg/dL (0.6-1.2) 08/22/20 18:14 Estimated GFR > 60 ml/min 08/22/20 18:14 BUN/Creatinine Ratio 11 % 08/22/20 18:14 Glucose 143 mg/dL (65-100) H 08/22/20 18:14 Uric Acid 3.1 mg/dL (3.5-7.6) L 08/22/20 18:14 Calcium 9.6 mg/dL (8.4-10.2) 08/22/20 18:14 Magnesium 1.90 mg/dL (1.7-2.3) 08/22/20 18:14 Total Bilirubin 0.60 mg/dL (0.1-1.2) 08/22/20 18:14 AST 28 units/L (5-40) 08/22/20 18:14 ALT 24 units/L (7-56) 08/22/20 18:14 Alkaline Phosphatase 79 units/L (35-129) 08/22/20 18:14 Total Creatine Kinase 251 units/L (30-135) H 08/22/20 18:14 Troponin T < 0.010 ng/mL (0.00-0.029) 08/22/20 18:14 Total Protein 7.6 g/dL (6.3-8.2) 08/22/20 18:14 Albumin 4.6 g/dL (3.9-5) 08/22/20 18:14 Albumin/Globulin Ratio 1.5 % 08/22/20 18:14 Lipase 16 units/L (13-60) 08/22/20 18:14 - Imaging and Cardiology Chest x-ray: image reviewed CT Scan - head: image reviewed Assessment and Plan - Patient Problems (1) Nausea & vomiting Current Visit: Yes Status: Acute Plan to address problem: Admit the patient to the medical floor. Put the patient on regular diet. IV fluid normal saline at the rate of 75 cc/h. Protonix 40 mg IV daily. Zofran 4 mg IV every 6 hours as needed. Recheck CBC BMP in the morning (2) Acute headache Current Visit: Yes Status: Acute Qualifiers: Headache type: unspecified Intractability: not intractable Qualified Code(s): R51.9 - Headache, unspecified (3) Acute hyponatremia Current Visit: Yes Status: Acute
[2020-08-22] MEDS: SODIUM CHLORIDE 0.9% 1000 ML 1,000 ML IV SCH (23:15)
[2020-08-22] MEDS: PANTOPRAZOLE 40 MG INJ IV SCH (23:15)
[2020-08-22] MEDS: HEPARIN 5,000 UNIT/1 ML VIAL SUB-Q SCH (23:39)
[2020-08-23] MEDS: HEPARIN 5,000 UNIT/1 ML VIAL SUB-Q SCH ×3 (05:41→22:23)
[2020-08-23 06:42] LABS: Basophils % (Auto) 0.3 % (0.0-1.8); Eosinophils % (Auto) 0.5 % (0.0-4.3); Hematocrit 42.7 % (30.3-42.9); Hemoglobin 14.6 gm/dl (10.1-14.3); Lymphocytes # (Auto) 2.9 K/mm3 (1.2-5.4); Lymphocytes % (Auto) 37.7 % (13.4-35.0); Mean Corpuscular HGB Conc 34 % (30-34); Mean Corpuscular Volume 89 fl (79-97); Monocytes # (Auto) 0.7 K/mm3 (0.0-0.8); Monocytes % (Auto) 9.6 % (0.0-7.3); Platelet Count 205 K/mm3 (140-440); Red Blood Count 4.82 M/mm3 (3.65-5.03)
[2020-08-23 06:50] LABS: Blood Urea Nitrogen 8 mg/dL (7-17); Calcium 8.9 mg/dL (8.4-10.2); Hemolysis Index 12
[2020-08-23 06:52] LABS: BUN/Creatinine Ratio 13
[2020-08-23] MEDS: ACETAMINOPHEN 325 MG TAB PO PRN ×2 (09:03→14:13)
[2020-08-23] MEDS: PANTOPRAZOLE 40 MG INJ IV SCH (09:05)
[2020-08-23] MEDS: SODIUM CHLORIDE 0.9% 1000 ML 1,000 ML IV SCH (09:06)
[2020-08-23] MEDS ORDERED: POTASSIUM CHLORIDE ER 20 MEQ TAB PO ONE ×2 (09:16→15:00)
--- NOTE | 2020-08-23 09:16 | Consultation ---
History of Present Illness - History of Present Illness Thank you for the consultation Patient was evaluated today around My assessment and plan are as follows: #Hyponatremia most likely due to hydrochlorothiazide, patient was recently started on lisinopril hydrochlorthiazide through her primary care physician at he does not need family practice, #Hydrochlorthiazide have been discontinued her sodium appears to be stabilizing should improve without any further effort in case if needed we will start her on sodium tablets #Mild hypokalemia we will supplement this should also help with correction of sodium as well #History of hypertension recently started hydrochlorthiazide patient is 70-year-old and have advised her to abstain from hydrochlorothiazide in future #Hypertension goal blood pressure currently 140/80 or so Patient has been adequately counseled regarding all the related issues she was advised not to get out of the bed as she has been feeling weak and at times dizzy, Restrict fluid to 1 L per day for now Encourage high sodium diet and follow Author: Rishi Thornton M.D. [facility], [address] [place] [address] Tel; [phone] History of present illness Patient is a very pleasant 70-year-old female who was recently started on lisinopril hydrochlorthiazide for controlling hypertension, patient was in the hospital with complaints of headache having nausea vomiting and dizziness, upon evaluation in the ER she was noted to be hyponatremic, the headache was mostly frontal that time she was also experiencing dizziness She has been admitted here for evaluation of hyponatremia which is currently felt to be due to hydrochlorothiazide patient says that between yesterday and today she feels better she has no history of any diarrhea Past medical history: Reviewed on the current chart Current allergies: Reviewed from the current chart Social history: Reviewed from the current chart Family history: Reviewed from the current chart Review of system: Positive for Nausea dizziness vomiting weakness headache Currently doing better All other review of systems negative Physical examination Vitals: Reviewed General: No acute distress HEENT: Oral mucosa moist no pallor or icterus Neck: Supple without any JVD thyromegaly or nodular mass Chest: Clear to auscultation Heart: Regular rate and rhythm S1-S2 heard no S3-S4 Abdomen: Soft nontender, bowel sounds present no renal bruit no suprapubic masses no CVA tenderness noted Extremity: Minimal edema dry skin no peripheral cyanosis Endocrine: Thyroid not enlarged Psychiatric: No agitation and aggression noted Musculoskeletal: No joint effusion noted Labs and x-rays: Reviewed from this admission Past History Past Medical History: hypertension Medications and Allergies Allergies Allergy/AdvReac Type Severity Reaction Status Date / Time No Known Allergies Allergy Unverified 06/23/20 10:22 Active Meds: Active Medications Acetaminophen (Acetaminophen 325 Mg Tab) 650 mg PO Q4H PRN PRN Reason: Pain MILD(1-3)/Fever >100.5/SAHU Last Admin: 08/23/20 09:03 Dose: 650 mg Documented by: Heparin Sodium (Porcine) (Heparin 5,000 Unit/1 Ml Vial) 5,000 unit SUB-Q Q8HR [facility] Last Admin: 08/23/20 05:41 Dose: 5,000 unit Documented by: Sodium Chloride (Nacl 0.9% 1000 Ml) 1,000 mls @ 75 mls/hr IV DIRECT [facility] Last Admin: 08/23/20 09:06 Dose: 75 mls/hr Documented by: Ondansetron HCl (Ondansetron 4 Mg/2 Ml Inj) 4 mg IV Q8H PRN PRN Reason: Nausea And Vomiting Pantoprazole Sodium (Pantoprazole 40 Mg Inj) 40 mg IV QDAY [facility] Last Admin: 08/23/20 09:05 Dose: 40 mg Documented by: Sodium Chloride (Sodium Chloride 0.9% 10 Ml Flush Syringe) 10 ml IV BID [facility] Last Admin: 08/23/20 09:06 Dose: 10 ml Documented by: Sodium Chloride (Sodium Chloride 0.9% 10 Ml Flush Syringe) 10 ml IV PRN PRN PRN Reason: LINE FLUSH Exam - Vital Signs Vital signs: Vital Signs Temp Pulse Resp BP Pulse Ox 98.1 F 70 20 140/80 98 08/22/20 18:11 08/22/20 18:11 08/22/20 18:11 08/22/20 18:11 08/22/20 18:11 Results - Lab Results 08/23/20 06:13 08/23/20 18:49 Most recent lab results Calcium 8.9 mg/dL (8.4-10.2) 08/23/20 06:13 Magnesium 1.90 mg/dL (1.7-2.3) 08/22/20 18:14
[2020-08-23 10:14] LABS: Bilirubin,Urine NEG (Negative); Blood,Urine MOD (Negative); Color,Urine Straw (Yellow); Protein,Urine <15 mg/dL mg/dL (Negative); Urobilinogen,Urine < 2.0 mg/dL (<2.0)
[2020-08-23 11:29] LABS: Creatinine,Urine 79.5 mg/dL (0.1-20.0)
--- NOTE | 2020-08-23 13:24 | Progress Note ---
Assessment and Plan Assessment and plan: 70-year-old female with history of hypertension, migraine headaches, and distant history of hysterectomy was brought to the emergency room because of "migraine headache,", nausea, vomiting and "dizziness for the last 3 days" Patient reports primary care doctor recently changed her prescription antihypertensive therapy, lisinopril, to lisinopril HCTZ. She reports her symptoms are closely correlated with this change. She describes a headache which is frontal, not sudden or thunderclap in nature, not maximal in intensity, not the worst headache of her life, without associated loss of vision, extremity weakness/numbness, or neck pain/neck stiffness. Headache is similar to prior headaches. In the emergency room patient is found to have sodium of 119. Initial CT scan of the head shows no acute intracranial abnormality Patient was admitted for management of hyponatremia. Nephrology consulted. 08/23. Has no complaints. HCTZ on hold. Sodium slightly better. BMP q6hr ordered. Nephrology recs appreciated Plan --- Acute hyponatremia Likely as result of hydrochlorothiazide which has been held On IV hydration Sodium continues to improve-130 Nephrology evaluation appreciated Plan to repeat BMP tomorrow and if continues to improve, patient will be discharged home. ---Dizziness Improved as per patient PT to see ---Chronic medical conditions-hypertension Continue home medications DVT prophylaxis-Heparin Full code History Interval history: No acute events noted overnight Hospitalist Physical - Physical exam Narrative exam: VITAL SIGNS: Reviewed. GENERAL: Awake HEAD: No signs of head trauma. EYES: Pupils are equal. Extraocular motions intact. MOUTH: Oropharynx is normal. NECK: No adenopathy, no JVD. CHEST: Chest with diminished breath sounds bilaterally. No wheezes, rales, or rhonchi. CARDIAC: normal S1 and S2, without murmurs, gallops, or rubs. ABDOMEN: Soft, non tender and non distended. No rebound or guarding, and no masses palpated. Bowel Sounds normal. MUSCULOSKELETAL: No edema NEUROLOGIC EXAM: Alert and oriented x3. No focal neurologic deficits SKIN: No obvious lesions - Constitutional Vitals: Temp Pulse Resp BP Pulse Ox 97.0 F L 69 20 145/75 99 08/23/20 10:58 08/23/20 10:58 08/23/20 10:58 08/23/20 10:58 08/23/20 11:58 HEART Score - HEART Score Troponin: Troponin T < 0.010 ng/mL (0.00-0.029) 08/22/20 18:14 Results - Labs CBC & Chem 7: 08/23/20 06:13 08/24/20 06:13 Labs: Laboratory Last Values WBC 7.6 K/mm3 (4.5-11.0) 08/23/20 06:13 RBC 4.82 M/mm3 (3.65-5.03) 08/23/20 06:13 Hgb 14.6 gm/dl (10.1-14.3) H 08/23/20 06:13 Hct 42.7 % (30.3-42.9) 08/23/20 06:13 MCV 89 fl (79-97) 08/23/20 06:13 MCH 30 pg (28-32) 08/23/20 06:13 MCHC 34 % (30-34) 08/23/20 06:13 RDW 13.0 % (13.2-15.2) L 08/23/20 06:13 Plt Count 205 K/mm3 (140-440) 08/23/20 06:13 Lymph % (Auto) 37.7 % (13.4-35.0) H 08/23/20 06:13 [place] % (Auto) 9.6 % (0.0-7.3) H 08/23/20 06:13 Eos % (Auto) 0.5 % (0.0-4.3) 08/23/20 06:13 Baso % (Auto) 0.3 % (0.0-1.8) 08/23/20 06:13 Lymph # (Auto) 2.9 K/mm3 (1.2-5.4) 08/23/20 06:13 [place] # (Auto) 0.7 K/mm3 (0.0-0.8) 08/23/20 06:13 Eos # (Auto) 0.0 K/mm3 (0.0-0.4) 08/23/20 06:13 Baso # (Auto) 0.0 K/mm3 (0.0-0.1) 08/23/20 06:13 Seg Neutrophils % 51.9 % (40.0-70.0) 08/23/20 06:13 Seg Neutrophils # 3.9 K/mm3 (1.8-7.7) 08/23/20 06:13 Sodium 120 mmol/L (137-145) L 08/23/20 06:13 Potassium 3.7 mmol/L (3.6-5.0) 08/23/20 06:13 Chloride 84.4 mmol/L (98-107) L 08/23/20 06:13 Carbon Dioxide 23 mmol/L (22-30) 08/23/20 06:13 Anion Gap 16 mmol/L 08/23/20 06:13 BUN 8 mg/dL (7-17) 08/23/20 06:13 Creatinine 0.6 mg/dL (0.6-1.2) 08/23/20 06:13 Estimated GFR > 60 ml/min 08/23/20 06:13 BUN/Creatinine Ratio 13 % 08/23/20 06:13 Glucose 90 mg/dL (65-100) 08/23/20 06:13 Uric Acid 3.1 mg/dL (3.5-7.6) L 08/22/20 18:14 Calcium 8.9 mg/dL (8.4-10.2) 08/23/20 06:13 Magnesium 1.90 mg/dL (1.7-2.3) 08/22/20 18:14 Total Bilirubin 0.60 mg/dL (0.1-1.2) 08/22/20 18:14 AST 28 units/L (5-40) 08/22/20 18:14 ALT 24 units/L (7-56) 08/22/20 18:14 Alkaline Phosphatase 79 units/L (35-129) 08/22/20 18:14 Total Creatine Kinase 251 units/L (30-135) H 08/22/20 18:14 Troponin T < 0.010 ng/mL (0.00-0.029) 08/22/20 18:14 Total Protein 7.6 g/dL (6.3-8.2) 08/22/20 18:14 Albumin 4.6 g/dL (3.9-5) 08/22/20 18:14 Albumin/Globulin Ratio 1.5 % 08/22/20 18:14 Lipase 16 units/L (13-60) 08/22/20 18:14 TSH 1.110 mlU/mL (0.270-4.200) 08/22/20 18:14 Urine Color Straw (Yellow) 08/22/20 09:56 Urine Turbidity Clear (Clear) 08/22/20 09:56 Urine pH 6.0 (5.0-7.0) 08/22/20 09:56 Ur Specific [place] 1.008 (1.003-1.030) 08/22/20 09:56 Urine Protein <15 mg/dl mg/dL (Negative) 08/22/20 09:56 Urine Glucose (UA) Neg mg/dL (Negative) 08/22/20 09:56 Urine Ketones 20 mg/dL (Negative) 08/22/20 09:56 Urine Blood Mod (Negative) 08/22/20 09:56 Urine Nitrite Neg (Negative) 08/22/20 09:56 Urine Bilirubin Neg (Negative) 08/22/20 09:56 Urine Urobilinogen < 2.0 mg/dL (<2.0) 08/22/20 09:56 Ur Leukocyte Esterase Neg (Negative) 08/22/20 09:56 Urine WBC (Auto) 1.0 /HPF (0.0-6.0) 08/22/20 09:56 Urine RBC (Auto) 1.0 /HPF (0.0-6.0) 08/22/20 09:56 U Epithel Cells (Auto) < 1.0 /HPF (0-13.0) 08/22/20 09:56 Urine Osmolality 286 Mosm/kg 08/22/20 09:56 Urine Creatinine 79.5 mg/dL (0.1-20.0) H 08/22/20 09:56 Urine Sodium 20 mmol/L 08/22/20 09:56 Yates/IV: Voiding Method Toilet IV Catheter Type [Right Peripheral IV Forearm] Active Medications - Current Medications Current Medications: Generic Name Dose Route Start Last Admin Trade Name Freq PRN Reason Stop Dose Admin Acetaminophen 650 mg 08/22/20 21:14 08/23/20 09:03 Acetaminophen 325 Mg Tab PO 650 mg Q4H PRN Administration Pain MILD(1-3)/Fever >100.5/SAHU Famotidine 20 mg 08/23/20 10:00 Famotidine 20 Mg Tab PO QDAY REN Heparin Sodium (Porcine) 5,000 unit 08/22/20 22:00 08/23/20 05:41 Heparin 5,000 Unit/1 Ml Vial SUB-Q 5,000 unit Q8HR REN Administration Sodium Chloride 1,000 mls @ 75 mls/hr 08/22/20 21:15 08/23/20 09:06 Nacl 0.9% 1000 Ml IV 75 mls/hr DIRECT REN Administration Ondansetron HCl 4 mg 08/22/20 21:14 Ondansetron 4 Mg/2 Ml Inj IV Q8H PRN Nausea And Vomiting Sodium Chloride 10 ml 08/22/20 22:00 08/23/20 09:06 Sodium Chloride 0.9% 10 Ml Flush Syringe IV 10 ml BID REN Administration Sodium Chloride 10 ml 08/22/20 21:14 Sodium Chloride 0.9% 10 Ml Flush Syringe IV PRN PRN LINE FLUSH
[2020-08-23] MEDS: FAMOTIDINE 20 MG TAB PO SCH (14:19)
[2020-08-23 20:11] LABS: Blood Urea Nitrogen 10 mg/dL (7-17); Calcium 8.7 mg/dL (8.4-10.2); Hemolysis Index 44
[2020-08-23 20:14] LABS: BUN/Creatinine Ratio 14
[2020-08-24 02:12] LABS: Blood Urea Nitrogen 8 mg/dL (7-17); Calcium 8.7 mg/dL (8.4-10.2); Hemolysis Index 9
[2020-08-24 02:50] LABS: BUN/Creatinine Ratio 11
[2020-08-24] MEDS: HEPARIN 5,000 UNIT/1 ML VIAL SUB-Q SCH ×3 (05:04→21:18)
[2020-08-24] MEDS: SODIUM CHLORIDE 0.9% 1000 ML 1,000 ML IV SCH (05:04)
[2020-08-24 06:56] LABS: Blood Urea Nitrogen 8 mg/dL (7-17); Calcium 8.7 mg/dL (8.4-10.2); Hemolysis Index 13
[2020-08-24 06:58] LABS: BUN/Creatinine Ratio 11
[2020-08-24] MEDS: FAMOTIDINE 20 MG TAB PO SCH (10:18)
--- NOTE | 2020-08-24 10:29 | Discharge Summary ---
Providers - Providers Date of Admission: 08/22/20 20:49 Date of discharge: 08/24/20 Attending physician: CHARI BRUMFIELD 08/22/20 20:42 Consult to Physician [CONS] Urgent Comment: Dr. Juarez spoke with Dr. Thornton @ [phone] Consulting Provider: MARISA OLMSTEAD Physician Instructions: Reason For Exam: hyponatremia 08/24/20 07:37 Physical Therapy Evaluation and Treat [CONS] Routine Comment: Reason For Exam: Ambulation - monitor for dizziness Hospitalization Condition: Good Hospital course: 70-year-old female with history of hypertension, migraine headaches, and distant history of hysterectomy was brought to the emergency room because of "migraine headache,", nausea, vomiting and "dizziness for the last 3 days" Patient reports primary care doctor recently changed her prescription antihypertensive therapy, lisinopril, to lisinopril HCTZ. She reports her symptoms are closely correlated with this change. She describes a headache which is frontal, not sudden or thunderclap in nature, not maximal in intensity, not the worst headache of her life, without associated loss of vision, extremity weakness/numbness, or neck pain/neck stiffness. Headache is similar to prior headaches. In the emergency room patient is found to have sodium of 119. Initial CT scan of the head shows no acute intracranial abnormality. Patient was admitted for management of hyponatremia. Nephrology consulted. 08/23. Etiology of headache is likely migraine. She has no complaints. HCTZ on hold. Sodium slightly better. BMP q6hr ordered. Nephrology recs appreciated Disposition: - TO HOME OR SELFCARE - Discharge Diagnoses (1) Acute headache Status: Acute Qualifiers: Headache type: unspecified Intractability: not intractable Qualified Code(s): R51.9 - Headache, unspecified (2) Acute hyponatremia Status: Acute Core Measure Documentation - Palliative Care Palliative Care/ Comfort Measures: Not Applicable - Core Measures Any of the following diagnoses?: none Exam - Physical Exam Narrative exam: VITAL SIGNS: Reviewed. GENERAL: Awake HEAD: No signs of head trauma. EYES: Pupils are equal. Extraocular motions intact. MOUTH: Oropharynx is normal. NECK: No adenopathy, no JVD. CHEST: Chest with diminished breath sounds bilaterally. No wheezes, rales, or rhonchi. CARDIAC: normal S1 and S2, without murmurs, gallops, or rubs. ABDOMEN: Soft, non tender and non distended. No rebound or guarding, and no masses palpated. Bowel Sounds normal. MUSCULOSKELETAL: No edema NEUROLOGIC EXAM: Alert and oriented x3. No focal neurologic deficits SKIN: No obvious lesions - Constitutional Vitals: Temp Pulse Resp BP Pulse Ox 97.9 F 60 18 145/63 100 08/24/20 04:56 08/24/20 04:56 08/24/20 04:56 08/24/20 04:56 08/24/20 04:56 Plan Diet: regular Additional Instructions: Stop hydrochlorothiazide. Continue usual medications. Follow PCP Follow up with: [facility] [Other] - 7 Days
--- NOTE | 2020-08-24 10:40 | Progress Note ---
Assessment and Plan Assessment and plan: 70-year-old female with history of hypertension, migraine headaches, and distant history of hysterectomy was brought to the emergency room because of "migraine headache,", nausea, vomiting and "dizziness for the last 3 days" Patient reports primary care doctor recently changed her prescription antihypertensive therapy, lisinopril, to lisinopril HCTZ. She reports her symptoms are closely correlated with this change. She describes a headache which is frontal, not sudden or thunderclap in nature, not maximal in intensity, not the worst headache of her life, without associated loss of vision, extremity weakness/numbness, or neck pain/neck stiffness. Headache is similar to prior headaches. In the emergency room patient is found to have sodium of 119. Initial CT scan of the head shows no acute intracranial abnormality. Patient was admitted for management of hyponatremia. Nephrology consulted. 08/23. Etiology of headache is likely migraine. She has no complaints. HCTZ on hold. Sodium slightly better. BMP q6hr ordered. Nephrology recs appreciated 08/24. Headache has improved. Sodium is better. Plan to dc home tomorrow if it continues to improve as per nephrology Plan --- Acute hyponatremia Likely as result of hydrochlorothiazide which has been held On IV hydration Sodium continues to improve-132 today Nephrology evaluation appreciated ---Dizziness Improved as per patient PT to see ---Chronic medical conditions-hypertension Continue home medications DVT prophylaxis-Heparin Full code - Patient Problems (1) Acute headache Current Visit: Yes Status: Acute Qualifiers: Headache type: unspecified Intractability: not intractable Qualified Code(s): R51.9 - Headache, unspecified (2) Acute hyponatremia Current Visit: Yes Status: Acute History Interval history: No acute events noted overnight Sodium better Hospitalist Physical - Physical exam Narrative exam: VITAL SIGNS: Reviewed. GENERAL: Awake HEAD: No signs of head trauma. EYES: Pupils are equal. Extraocular motions intact. MOUTH: Oropharynx is normal. NECK: No adenopathy, no JVD. CHEST: Chest with diminished breath sounds bilaterally. No wheezes, rales, or rhonchi. CARDIAC: normal S1 and S2, without murmurs, gallops, or rubs. ABDOMEN: Soft, non tender and non distended. No rebound or guarding, and no masses palpated. Bowel Sounds normal. MUSCULOSKELETAL: No edema NEUROLOGIC EXAM: Alert and oriented x3. No focal neurologic deficits SKIN: No obvious lesions - Constitutional Vitals: Temp Pulse Resp BP Pulse Ox 97.9 F 60 18 145/63 100 08/24/20 04:56 08/24/20 04:56 08/24/20 04:56 08/24/20 04:56 08/24/20 04:56 HEART Score - HEART Score Troponin: Troponin T < 0.010 ng/mL (0.00-0.029) 08/22/20 18:14 Results - Labs CBC & Chem 7: 08/23/20 06:13 08/24/20 06:13 Labs: Laboratory Last Values WBC 7.6 K/mm3 (4.5-11.0) 08/23/20 06:13 RBC 4.82 M/mm3 (3.65-5.03) 08/23/20 06:13 Hgb 14.6 gm/dl (10.1-14.3) H 08/23/20 06:13 Hct 42.7 % (30.3-42.9) 08/23/20 06:13 MCV 89 fl (79-97) 08/23/20 06:13 MCH 30 pg (28-32) 08/23/20 06:13 MCHC 34 % (30-34) 08/23/20 06:13 RDW 13.0 % (13.2-15.2) L 08/23/20 06:13 Plt Count 205 K/mm3 (140-440) 08/23/20 06:13 Lymph % (Auto) 37.7 % (13.4-35.0) H 08/23/20 06:13 [place] % (Auto) 9.6 % (0.0-7.3) H 08/23/20 06:13 Eos % (Auto) 0.5 % (0.0-4.3) 08/23/20 06:13 Baso % (Auto) 0.3 % (0.0-1.8) 08/23/20 06:13 Lymph # (Auto) 2.9 K/mm3 (1.2-5.4) 08/23/20 06:13 [place] # (Auto) 0.7 K/mm3 (0.0-0.8) 08/23/20 06:13 Eos # (Auto) 0.0 K/mm3 (0.0-0.4) 08/23/20 06:13 Baso # (Auto) 0.0 K/mm3 (0.0-0.1) 08/23/20 06:13 Seg Neutrophils % 51.9 % (40.0-70.0) 08/23/20 06:13 Seg Neutrophils # 3.9 K/mm3 (1.8-7.7) 08/23/20 06:13 Sodium 132 mmol/L (137-145) L 08/24/20 06:13 Potassium 4.6 mmol/L (3.6-5.0) 08/24/20 06:13 Chloride 102.8 mmol/L (98-107) 08/24/20 06:13 Carbon Dioxide 22 mmol/L (22-30) 08/24/20 06:13 Anion Gap 12 mmol/L 08/24/20 06:13 BUN 8 mg/dL (7-17) 08/24/20 06:13 Creatinine 0.7 mg/dL (0.6-1.2) 08/24/20 06:13 Estimated GFR > 60 ml/min 08/24/20 06:13 BUN/Creatinine Ratio 11 % 08/24/20 06:13 Glucose 88 mg/dL (65-100) 08/24/20 06:13 Uric Acid 3.1 mg/dL (3.5-7.6) L 08/22/20 18:14 Calcium 8.7 mg/dL (8.4-10.2) 08/24/20 06:13 Magnesium 1.90 mg/dL (1.7-2.3) 08/22/20 18:14 Total Bilirubin 0.60 mg/dL (0.1-1.2) 08/22/20 18:14 AST 28 units/L (5-40) 08/22/20 18:14 ALT 24 units/L (7-56) 08/22/20 18:14 Alkaline Phosphatase 79 units/L (35-129) 08/22/20 18:14 Total Creatine Kinase 251 units/L (30-135) H 08/22/20 18:14 Troponin T < 0.010 ng/mL (0.00-0.029) 08/22/20 18:14 Total Protein 7.6 g/dL (6.3-8.2) 08/22/20 18:14 Albumin 4.6 g/dL (3.9-5) 08/22/20 18:14 Albumin/Globulin Ratio 1.5 % 08/22/20 18:14 Lipase 16 units/L (13-60) 08/22/20 18:14 TSH 1.110 mlU/mL (0.270-4.200) 08/22/20 18:14 Urine Color Straw (Yellow) 08/22/20 09:56 Urine Turbidity Clear (Clear) 08/22/20 09:56 Urine pH 6.0 (5.0-7.0) 08/22/20 09:56 Ur Specific [place] 1.008 (1.003-1.030) 08/22/20 09:56 Urine Protein <15 mg/dl mg/dL (Negative) 08/22/20 09:56 Urine Glucose (UA) Neg mg/dL (Negative) 08/22/20 09:56 Urine Ketones 20 mg/dL (Negative) 08/22/20 09:56 Urine Blood Mod (Negative) 08/22/20 09:56 Urine Nitrite Neg (Negative) 08/22/20 09:56 Urine Bilirubin Neg (Negative) 08/22/20 09:56 Urine Urobilinogen < 2.0 mg/dL (<2.0) 08/22/20 09:56 Ur Leukocyte Esterase Neg (Negative) 08/22/20 09:56 Urine WBC (Auto) 1.0 /HPF (0.0-6.0) 08/22/20 09:56 Urine RBC (Auto) 1.0 /HPF (0.0-6.0) 08/22/20 09:56 U Epithel Cells (Auto) < 1.0 /HPF (0-13.0) 08/22/20 09:56 Urine Osmolality 286 Mosm/kg 08/22/20 09:56 Urine Creatinine 79.5 mg/dL (0.1-20.0) H 08/22/20 09:56 Urine Sodium 20 mmol/L 08/22/20 09:56 Yates/IV: Voiding Method Toilet IV Catheter Type [Right Peripheral IV Forearm] Active Medications - Current Medications Current Medications: Generic Name Dose Route Start Last Admin Trade Name Freq PRN Reason Stop Dose Admin Acetaminophen 650 mg 08/22/20 21:14 08/23/20 14:13 Acetaminophen 325 Mg Tab PO 650 mg Q4H PRN Administration Pain MILD(1-3)/Fever >100.5/SAHU Famotidine 20 mg 08/23/20 10:00 08/24/20 10:18 Famotidine 20 Mg Tab PO 20 mg QDAY REN Administration Heparin Sodium (Porcine) 5,000 unit 08/22/20 22:00 08/24/20 05:04 Heparin 5,000 Unit/1 Ml Vial SUB-Q 5,000 unit Q8HR REN Administration Ondansetron HCl 4 mg 08/22/20 21:14 Ondansetron 4 Mg/2 Ml Inj IV Q8H PRN Nausea And Vomiting Sodium Chloride 10 ml 08/22/20 22:00 08/24/20 10:18 Sodium Chloride 0.9% 10 Ml Flush Syringe IV 10 ml BID REN Administration Sodium Chloride 10 ml 08/22/20 21:14 Sodium Chloride 0.9% 10 Ml Flush Syringe IV PRN PRN LINE FLUSH
--- NOTE | 2020-08-24 12:42 | Progress Note ---
Assessment and Plan #Hyponatremia: likely due to hydrochlorothiazide, now stopped. Sodium has increased 119->132 this AM, am concerned for overcorrection with risk of ODS. Will stop NS, continue to monitor labs for next day prior to safe discharge, if sodium is above 135 today, would give D5W to avoid further overcorrection. 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 No need for salt tabs. Can liberalize fluid intake to thirst. Urine studies reviewed. #Mild hypokalemia: corrected, due to HCTZ, repletion of K helped with hyponatremia #History of hypertension: BP at goal, no HCTZ on discharge, will need outpatient follow up with PCP or nephrology for BP review Subjective Date of service: 08/24/20 Interval history: Feeling well this AM, weakness, nausea all improved Objective - Exam Narrative Exam: General: No acute distress HEENT: Oral mucosa moist Neck: Supple without any JVD Chest: Clear to auscultation Heart: Regular rate and rhythm Abdomen: Soft, nontender Extremity: no edema, no peripheral cyanosis Neuro: alert, oriented, no focal deficits noted Psychiatric: No agitation and aggression noted Musculoskeletal: No joint effusion noted - Vital Signs Vital signs: Vital Signs - 12hr 08/24/20 08/24/20 08/24/20 04:56 08:02 12:17 Temperature 97.9 F 98.5 F 98.4 F Pulse Rate 60 74 66 Respiratory 18 16 18 Rate Blood Pressure 145/63 132/70 128/68 O2 Sat by Pulse 100 100 100 Oximetry - Lab 08/23/20 06:13 08/24/20 06:13 Most recent lab results Calcium 8.7 mg/dL (8.4-10.2) 08/24/20 06:13 Magnesium 1.90 mg/dL (1.7-2.3) 08/22/20 18:14 Urine Creatinine 79.5 mg/dL (0.1-20.0) H 08/22/20 09:56 Urine Sodium 20 mmol/L 08/22/20 09:56 Medications & Allergies - Medications Allergies/Adverse Reactions: Allergies No Known Allergies Allergy (Unverified 06/23/20 10:22) Active Medications: Generic Name Dose Route Start Last Admin Trade Name Freq PRN Reason Stop Dose Admin Acetaminophen 650 mg 08/22/20 21:14 08/23/20 14:13 Acetaminophen 325 Mg Tab PO 650 mg Q4H PRN Administration Pain MILD(1-3)/Fever >100.5/SAHU Famotidine 20 mg 08/23/20 10:00 08/24/20 10:18 Famotidine 20 Mg Tab PO 20 mg QDAY REN Administration Heparin Sodium (Porcine) 5,000 unit 08/22/20 22:00 08/24/20 05:04 Heparin 5,000 Unit/1 Ml Vial SUB-Q 5,000 unit Q8HR REN Administration Ondansetron HCl 4 mg 08/22/20 21:14 Ondansetron 4 Mg/2 Ml Inj IV Q8H PRN Nausea And Vomiting Sodium Chloride 10 ml 08/22/20 22:00 08/24/20 10:18 Sodium Chloride 0.9% 10 Ml Flush Syringe IV 10 ml BID REN Administration Sodium Chloride 10 ml 08/22/20 21:14 Sodium Chloride 0.9% 10 Ml Flush Syringe IV PRN PRN LINE FLUSH
[2020-08-24 14:26] LABS: Blood Urea Nitrogen 9 mg/dL (7-17); Calcium 9.1 mg/dL (8.4-10.2); Hemolysis Index 12
[2020-08-24 14:30] LABS: BUN/Creatinine Ratio 13
[2020-08-24 21:01] LABS: BUN/Creatinine Ratio 11; Blood Urea Nitrogen 9 mg/dL (7-17); Calcium 9.1 mg/dL (8.4-10.2); Hemolysis Index 83
[2020-08-25 01:35] LABS: Blood Urea Nitrogen 9 mg/dL (7-17); Calcium 8.9 mg/dL (8.4-10.2); Hemolysis Index 24
[2020-08-25 01:42] LABS: BUN/Creatinine Ratio 13
[2020-08-25] MEDS ORDERED: ALUM-MAG HYDROXIDE-SIMETHICONE 200-200-20MG/5ML ORAL LIQD 30 ML PO PRN (02:23)
[2020-08-25] MEDS: HEPARIN 5,000 UNIT/1 ML VIAL SUB-Q SCH (05:18)
[2020-08-25 07:44] VITALS: BP 132/65
--- NOTE | 2020-08-25 08:57 | Discharge Summary ---
Providers - Providers Date of Admission: 08/24/20 17:17 Date of discharge: 08/25/20 Attending physician: FATEMEH HORN 08/22/20 20:42 Consult to Physician [CONS] Urgent Comment: Dr. Juarez spoke with Dr. Thornton @ 2104 Consulting Provider: MARISA OLMSTEAD Physician Instructions: Reason For Exam: hyponatremia 08/24/20 07:37 Physical Therapy Evaluation and Treat [CONS] Routine Comment: Reason For Exam: Ambulation - monitor for dizziness Hospitalization Reason for admission: h/a hyponatremia Condition: Good Hospital course: 70-year-old female with history of hypertension, migraine headaches, and distant history of hysterectomy was brought to the emergency room because of "migraine headache,", nausea, vomiting and "dizziness for the last 3 days" Patient reports primary care doctor recently changed her prescription antihypertensive therapy, lisinopril, to lisinopril HCTZ. She reports her symptoms are closely correlated with this change. She describes a headache which is frontal, not sudden or thunderclap in nature, not maximal in intensity, not the worst headache of her life, without associated loss of vision, extremity weakness/numbness, or neck pain/neck stiffness. Headache is similar to prior headaches. In the emergency room patient is found to have sodium of 119. Initial CT scan of the head shows no acute intracranial abnormality. Patient was admitted for management of hyponatremia. Nephrology consulted. 08/23. Etiology of headache is likely migraine. She has no complaints. HCTZ on hold. Sodium slightly better. BMP q6hr ordered. Nephrology recs appreciated 08/24/2020. Patient's sodium was noted to improve and patient returned near baseline with sodium level. Headache resolved. 08/25/2020 therefore, patient is felt to receive maximal hospital benefit for discharge. Dedicated discharge time 32 minutes. Disposition: DC- TO HOME OR SELFCARE Time spent for discharge: 35 - Discharge Diagnoses (1) Acute headache Status: Acute Qualifiers: Headache type: unspecified Intractability: not intractable Qualified Code(s): R51.9 - Headache, unspecified (2) Acute hyponatremia Status: Acute (3) Nausea & vomiting Status: Acute Core Measure Documentation - Palliative Care Palliative Care/ Comfort Measures: Not Applicable - Core Measures Any of the following diagnoses?: none Exam - Constitutional Vitals: Temp Pulse Resp BP Pulse Ox 98.1 F 62 18 132/65 99 08/25/20 07:16 08/25/20 07:16 08/25/20 07:16 08/25/20 07:16 08/25/20 07:16 General appearance: Present: no acute distress, well-nourished - EENT Eyes: Present: PERRL ENT: hearing intact, clear oral mucosa - Neck Neck: Present: supple, normal ROM - Respiratory Respiratory effort: normal Respiratory: bilateral: CTA - Cardiovascular Heart Sounds: Present: S1 & S2. Absent: rub, click - Extremities Extremities: pulses symmetrical, No edema Peripheral Pulses: within normal limits - Abdominal General gastrointestinal: Present: soft, non-tender, non-distended, normal bowel sounds Female genitourinary: Present: normal - Integumentary Integumentary: Present: clear, warm, dry - Musculoskeletal Musculoskeletal: gait normal, strength equal bilaterally - Psychiatric Psychiatric: appropriate mood/affect, intact judgment & insight - Neurologic Neurologic: CNII-XII intact, moves all extremities Plan Activity: advance as tolerated Weight Bearing Status: Weight Bear as Tolerated Diet: regular Follow up with: [facility] [Other] - 7 Days
--- NOTE | 2020-08-25 09:24 | Progress Note ---
Assessment and Plan #Hyponatremia: likely due to hydrochlorothiazide, now stopped. Sodium has increased 119->132->133 this AM greater than 48 hours after admission, less concern for overcorrection/ODS at this time. Off Normal Saline. 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 No need for salt tabs. Can liberalize fluid intake to thirst. Urine studies reviewed. - ok for discharge from renal perspective, will arrange outpatient follow up #Mild hypokalemia: corrected, due to HCTZ, repletion of K helped with hyponatremia #History of hypertension: BP at goal, no HCTZ on discharge, will need outpatient follow up with PCP or nephrology for BP review, can resume lisinopril without HCTZ as prior Subjective Date of service: 08/25/20 Interval history: Feeling well this AM, weakness, nausea improved. Did have throbbing headache overnight however, back to normal this AM Objective - Exam Narrative Exam: General: No acute distress HEENT: Oral mucosa moist Neck: Supple without any JVD Chest: Clear to auscultation Heart: Regular rate and rhythm Abdomen: Soft, nontender Extremity: no edema, no peripheral cyanosis Neuro: alert, oriented, no focal deficits noted Psychiatric: No agitation and aggression noted Musculoskeletal: No joint effusion noted - Vital Signs Vital signs: Vital Signs - 12hr 08/24/20 08/25/20 08/25/20 23:26 04:45 07:16 Temperature 97.6 F 98.3 F 98.1 F Pulse Rate 62 65 62 Respiratory 18 18 18 Rate Blood Pressure 122/61 144/69 132/65 O2 Sat by Pulse 98 99 99 Oximetry - Lab 08/23/20 06:13 08/25/20 00:39 Most recent lab results Calcium 8.9 mg/dL (8.4-10.2) 08/25/20 00:39 Magnesium 1.90 mg/dL (1.7-2.3) 08/22/20 18:14 Urine Creatinine 79.5 mg/dL (0.1-20.0) H 08/22/20 09:56 Urine Sodium 20 mmol/L 08/22/20 09:56 Medications & Allergies - Medications Allergies/Adverse Reactions: Allergies No Known Allergies Allergy (Unverified 06/23/20 10:22) Active Medications: Generic Name Dose Route Start Last Admin Trade Name Freq PRN Reason Stop Dose Admin Acetaminophen 650 mg 08/22/20 21:14 08/23/20 14:13 Acetaminophen 325 Mg Tab PO 650 mg Q4H PRN Administration Pain MILD(1-3)/Fever >100.5/SAHU Al Hydrox/Mg Hydrox/Simethicone 30 ml 08/25/20 02:23 08/25/20 02:27 Alum-Mag Hydroxide-Simethicone [id number]/5ml Oral Liqd 30 Ml PO 30 ml Q4H PRN Administration Indigestion Famotidine 20 mg 08/23/20 10:00 08/24/20 10:18 Famotidine 20 Mg Tab PO 20 mg QDAY REN Administration Heparin Sodium (Porcine) 5,000 unit 08/22/20 22:00 08/25/20 05:18 Heparin 5,000 Unit/1 Ml Vial SUB-Q 5,000 unit Q8HR REN Administration Ondansetron HCl 4 mg 08/22/20 21:14 Ondansetron 4 Mg/2 Ml Inj IV Q8H PRN Nausea And Vomiting Sodium Chloride 10 ml 08/22/20 22:00 08/24/20 21:19 Sodium Chloride 0.9% 10 Ml Flush Syringe IV 10 ml BID REN Administration Sodium Chloride 10 ml 08/22/20 21:14 Sodium Chloride 0.9% 10 Ml Flush Syringe IV PRN PRN LINE FLUSH
[2020-08-25] MEDS: FAMOTIDINE 20 MG TAB PO SCH (10:32)
== END 2020-08-25 12:20 | disposition home or self-care (01) | DRG 103 ==
LOC: ED 18:00 → 3B-SURG 20:49 → OBSVTOIN 08-24 17:17
PROVIDERS: ADMIT Hospitalist; ATTEND Hospitalist
DX: G43.909 Migraine, unspecified, not intractable, without status migrainosus (principal); E87.1 Hypo-osmolality and hyponatremia; E87.6 Hypokalemia; I10 Essential (primary) hypertension; Z90.710 Acquired absence of both cervix and uterus; Z79.899 Other long term (current) drug therapy; T50.2X5A Adverse effect of carbonic-anhydrase inhibitors, benzothiadiazides and other diuretics, initial encounter; Y92.89 Other specified places as the place of occurrence of the external cause
CPT/HCPCS: 36415; 70450; 71045; 80048; 80053; 81001; 82550; 82570; 83690; 83735; 83935; 84300; 84443; 84484; 84550; 85025; 93005; 96374; 96375; G0378; C9113; J1644; J2765; J7030

== ENCOUNTER 2021-07-12 09:09 | Emergency (ER) | payer MEDICARE ==
[2021-07-12 09:33] VITALS: BP 149/82
--- NOTE | 2021-07-12 09:59 | Emergency Department Report ---
ED General Adult HPI - General Chief complaint: High BP Stated complaint: HIGH BP Time Seen by Provider: 07/12/21 09:45 Source: patient, RN notes reviewed, old records reviewed Mode of arrival: Ambulatory Limitations: No Limitations - History of Present Illness Initial comments: 71-year-old female presents to the ER today with complaint of elevated blood pressure, tingling and numbness in the upper arms, and palpitation. Patient states that this morning when she woke up she noticed her blood pressure was elevated. Initial blood pressure reading was 185/104 but that was before she took her morning blood dose of lisinopril 20. She states that she did not checked it again a few hours later and was 194/101 and that was still after taking her amlodipine 2.5 mg. She states that she has had intermittent episodes of headache and dizziness in the past typically associated with her blood pressure being elevated but states that around 630 this morning she did notice that she was having some tingling in the right arm and numbness in the left arm as well as palpitations and a temporal headache. She states that the numbness and tingling have resolved but she still continues to have the temporal headache and the palpitations. She states that her right leg also felt weak this morning, but no weakness to her upper extremity or her left leg. She states that the weakness has also resolved. She states that she did feel nauseous this morning but did not vomit. She denies any chest pain, speech changes or vision changes or diaphoresis. Other than a history of hypertension. She denies any history of stroke, or coronary artery disease or any other significant past history. MD Complaint: Elevated BP/palipations/numbness/tingling -: Gradual, This morning (around 6:30am ) - Related Data Previous Rx's Medication Instructions Recorded Last Taken Type Acetaminophen [Acetaminophen 8 650 mg PO Q8HR #30 tablet.er 07/12/21 Unknown Rx Hour] Allergies Allergy/AdvReac Type Severity Reaction Status Date / Time No Known Allergies Allergy Verified 07/12/21 09:32 ED Review of Systems ROS: Stated complaint: HIGH BP Other details as noted in HPI Comment: All other systems reviewed and negative Constitutional: no symptoms reported Eyes: denies: eye pain, eye discharge, vision change ENT: denies: ear pain, throat pain Respiratory: other (palpitations). denies: cough, shortness of breath, SOB with exertion, SOB at rest Cardiovascular: palpitations. denies: chest pain, dyspnea on exertion, edema, syncope, paroxysmal nocturnal dyspnea Gastrointestinal: denies: abdominal pain, nausea, diarrhea, constipation, hematemesis, melena, hematochezia Genitourinary: denies: urgency, dysuria, frequency, hematuria, discharge Musculoskeletal: denies: back pain Neurological: weakness (right leg ), numbness, paresthesias. denies: headache, abnormal gait, vertigo Psychiatric: denies: anxiety, depression Hematological/Lymphatic: denies: easy bleeding, easy bruising ED Past Medical Hx - Past Medical History Hx Hypertension: Yes Hx Arthritis: Yes - Surgical History Hx Breast Surgery: Yes (left breast biopsy) Additional Surgical History: Hysterectomy, breast biopsy - Social History Smoking Status: Never Smoker - Medications Home Medications: Home Medications Medication Instructions Recorded Confirmed Last Taken Type Acetaminophen [Acetaminophen 8 650 mg PO Q8HR #30 tablet.er 07/12/21 Unknown Rx Hour] ED Physical Exam - General Limitations: No Limitations General appearance: alert, in no apparent distress - Head Head exam: Present: atraumatic, normocephalic ED Course Vital Signs 07/12/21 09:32 Temperature 98.2 F Pulse Rate 61 Respiratory 16 Rate Blood Pressure 149/82 O2 Sat by Pulse 100 Oximetry ED Medical Decision Making - Lab Data Result diagrams: 07/12/21 10:10 07/12/21 10:10 - EKG Data EKG shows normal: sinus rhythm Rate: normal (70) No standard instances Rhythm: NSR P Waves: [place] - EKG Data Interpretation: no acute changes - Radiology Data Radiology results: report reviewed Patient: HEMALATHA MARRERO MR#: [id number] 14 : 1950 Acct:[id number] Age/Sex: 71 / F ADM Date: 07/12/21 Loc: ED Attending Dr: Ordering Physician: LEONA RG Date of Service: 07/12/21 Procedure(s): CT head/brain wo con Accession Number(s): [id number] cc: LEONA RG CT head/brain wo con INDICATION: Headache/tingling or numbness in arms/elevated blo. TECHNIQUE: Routine CT head. All CT scans at this location are performed using CT dose reduction for ALARA by means of automated exposure control. COMPARISON: None. FINDINGS: Intracranial: Gordon-white matter differentiation is maintained. No intracranial hemorrhage. No extra axial collection. No hydrocephalus. No herniation. Calcified atherosclerosis in the anterior and posterior circulation. Sinuses: Paranasal sinuses and mastoid air cells are essentially clear. Orbits: Globes are intact. Calvarium: No acute fracture. IMPRESSION: 1. No acute intracranial abnormality. Signer Name: Gallo Alvarenga MD Signed: 07/12/2021 11:31 AM Workstation Name: [id number] Transcribed By: CS Dictated By: Gallo Alvarenga MD Electronically Authenticated By: Gallo Alvarenga MD Signed Date/Time: 07/12/21 113 DD/ 29 TD/TT: Patient: HEMALATHA MARRERO MR#: [id number] 14 : 1950 Acct:[id number] Age/Sex: 71 / F ADM Date: 07/12/21 Loc: ED Attending Dr: Ordering Physician: LEONA RG Date of Service: 07/12/21 Procedure(s): XR chest routine 2V Accession Number(s): [id number] cc: LEONA RG Fluoro Time In Minutes: CHEST 2 VIEWS INDICATION: palpitations. COMPARISON: 08/22/2020 FINDINGS: Support devices: None. Heart: Within normal limits. Lungs/pleura: No acute air space or interstitial disease. No pneumothorax. Additional findings: None. IMPRESSION: No acute findings. Signer Name: Robin Rodriguez Jr, MD Signed: 07/12/2021 10:45 AM Workstation Name: [id number] Transcribed By: TTR Dictated By: ROBIN RODRIGUEZ JR, MD Electronically Authenticated By: ROBIN RODRIGUEZ JR, MD Signed Date/Time: 07/12/21 1045 DD/ 104 TD/TT: - Medical Decision Making 1236: Patient states that she still has a mild headache, but overall feels better. She is currently awake alert and oriented x3. She has no focal neurological deficits on exam. Her gait is normal. Vital signs reviewed, and are stable. CT head shows nothing acute. Chest x-ray normal. EKG does not show any ischemic changes or significant dysrhythmias or any other acute abnormalities. Labs reviewed, sodium was mildly decreased at 131, but after reviewing her past visits, patient has a chronically low sodium. Remainder of her CMP unremarkable and her CBC is also normal. Troponin is negative. At this time patient history, physical, current condition and work-up does not suggest CVA, unstable angina, PE, dissection, or any other emergent conditions warranting additional testing or admission or specialist consult at this time. Discussed case with Dr. Hannon, he agree work-up, and plan for discharge. Recommend that patient continue to log her blood pressure readings, continue to take her regular dose of medications, and follow-up with her primary care doctor this week for reevaluation. Also recommend decreasing her caffeine intake, and decreasing salt intake Discussed all results with patient. Patient does admit that she drinks about 3 to 4 cups of caffeine a day. She states that she has been mindful of her salt intake but likes sweets. She does not drink sodas. Informed patient she may need to consider decreasing her caffeine intake as this can cause her blood pressure to also go up and cause palpitations. Recommend following up with her PCP this week and also keeping a log of her blood pressure and bring with her to her PCPs office. Patient expressed understanding of all instructions and agree with plan. She understands to return if at any point her symptoms worsens or changes. Critical care attestation.: If time is entered above; I have spent that time in minutes in the direct care of this critically ill patient, excluding procedure time. ED Disposition Clinical Impression: Palpitations, Hypertension Disposition: 01 HOME / SELF CARE / HOMELESS Is pt being admited?: No Does the pt Need Aspirin: No Condition: Stable Instructions: Hypertension, Adult, [id number], Palpitations, [id number], Hypertension (ED) Additional Instructions: I recommend that you continue your regular regimen of blood pressure medication. I do recommend that you continue checking her blood pressure no more than 2 times a day, keep a log call if your readings and I do want you to follow-up with your PCP this week for further blood pressure management and possible blood pressure medication adjustment. I do recommend that you decrease your salt intake as well as decrease your caffeine intake and increase your water intake. Return to the ER if at any point your symptoms changes or worsens in any way. Prescriptions: Acetaminophen [Acetaminophen 8 Hour] 650 mg PO Q8HR #30 tablet.er Referrals: PRIMARY CARE, [Primary Care Provider] - 3-5 Days Time of Disposition: 12:31
[2021-07-12 10:40] LABS: Basophils % (Auto) 0.5 % (0.0-1.8); Eosinophils # (Auto) 0.1 K/mm3 (0.0-0.4); Eosinophils % (Auto) 0.8 % (0.0-4.3); Hematocrit 44.2 % (30.3-42.9); Hemoglobin 14.2 gm/dl (10.1-14.3); Lymphocytes % (Auto) 29.6 % (13.4-35.0); Mean Corpuscular HGB Conc 32 % (30-34); Mean Corpuscular Volume 91 fl (79-97); Monocytes # (Auto) 0.4 K/mm3 (0.0-0.8); Monocytes % (Auto) 5.8 % (0.0-7.3); Platelet Count 228 K/mm3 (140-440); Red Blood Count 4.88 M/mm3 (3.65-5.03); Red Cell Distribution Width 13.5 % (13.2-15.2)
--- NOTE | 2021-07-12 10:49 | XRay Report ---
CHEST 2 VIEWS INDICATION: palpitations. COMPARISON: 08/22/2020 FINDINGS: Support devices: None. Heart: Within normal limits. Lungs/pleura: No acute air space or interstitial disease. No pneumothorax. Additional findings: None. IMPRESSION: No acute findings. Signer Name: Robin Rodriguez Jr, MD Signed: 07/12/2021 10:45 AM Workstation Name: [id number]
[2021-07-12 11:07] LABS: Alanine Aminotransferase 20 units/L (7-56); Blood Urea Nitrogen 8 mg/dL (7-17); Calcium 9.8 mg/dL (8.4-10.2)
[2021-07-12 11:08] LABS: Albumin 4.4 g/dL (3.9-5); BUN/Creatinine Ratio 13; Hemolysis Index 5
--- NOTE | 2021-07-12 11:36 | Cat Scan Report ---
CT head/brain wo con INDICATION: Headache/tingling or numbness in arms/elevated blo. TECHNIQUE: Routine CT head. All CT scans at this location are performed using CT dose reduction for A KEVIN by means of automated exposure control. COMPARISON: None. FINDINGS: Intracranial: Gordon-white matter differentiation is maintained. No intracranial hemorrhage. No extra a xial collection. No hydrocephalus. No herniation. Calcified atherosclerosis in the anterior and poste rior circulation. Sinuses: Paranasal sinuses and mastoid air cells are essentially clear. Orbits: Globes are intact. Calvarium: No acute fracture. IMPRESSION: 1. No acute intracranial abnormality. Signer Name: Gallo Alvarenga MD Signed: 07/12/2021 11:31 AM Workstation Name: [id number]
--- NOTE | 2021-07-15 09:59 | Electrocardiograph Report ---
[facility] Test Date: 2021-07-12 Test Time: 10:19:34 Pat Name: HEMALATHA MARRERO Department: Room: Gender: F Medical Sales Representative: CHELSEA : 1950 Requested By: LEONA RG Order Number: [id number] Reading MD: Radha Roger Measurements Intervals [place] Rate: 70 P: 84 NV: 197 QRS: 83 QRSD: 79 T: -43 QT: 379 QTc: 408 Interpretive Statements Sinus rhythm Right atrial enlargement Borderline T abnormalities, diffuse leads No previous ECG available for comparison Electronically Signed On 07-15-2021 9:59:01 EST by Radha Roger
== END 2021-07-12 12:40 | disposition home or self-care (01) ==
LOC: ED 09:09
DX: R00.2 Palpitations (principal); I10 Essential (primary) hypertension; M19.90 Unspecified osteoarthritis, unspecified site; Z98.890 Other specified postprocedural states; Z79.899 Other long term (current) drug therapy; Z90.710 Acquired absence of both cervix and uterus
CPT/HCPCS: 36415; 70450; 71046; 80053; 83735; 84484; 85025; 93005; 99284